=== PATIENT | male | born 1940 | race Two or more races ===

== ENCOUNTER 2018-03-04 19:53 | Emergency (ER) | payer MEDICARE, MEDICAID ==
[~2018-03-04] VITALS: Ht 175.3 cm; Wt 74.8 kg
[2018-03-04 20:00] VITALS: BP 128/63
[2018-03-04] MEDS ORDERED: DONEPEZIL HCL5 MG ORAL (20:08)
[2018-03-04] MEDS ORDERED: ATENOLOL25 MG ORAL (20:08)
[2018-03-04] MEDS ORDERED: LANTUS SOL100 UNIT/1 SUBQ (20:08)
[2018-03-04] MEDS ORDERED: GLIPIZIDE10 MG PO (20:08)
[2018-03-04] MEDS ORDERED: LISINOPRIL10 MG ORAL (20:08)
[2018-03-04] MEDS ORDERED: AMLODIPINE BESYL5 MG ORAL (20:08)
[2018-03-04] MEDS ORDERED: GABAPENTIN300 MG ORAL (20:08)
[2018-03-04] MEDS ORDERED: ATORVASTATIN CA80 MG ORAL (20:08)
[2018-03-04] MEDS ORDERED: TAMSULOSIN HCL0.4 MG ORAL (20:13)
[2018-03-04] MEDS ORDERED: ACETAMINOPHEN325 M1 ORAL (20:13)
[2018-03-04] MEDS ORDERED: ZINC SULFATE220 M1 ORAL (20:13)
[2018-03-04] MEDS ORDERED: VITAMIN C500 M1 ORAL (20:13)
[2018-03-04] MEDS ORDERED: PRO-STAT LIQUID30 ML ORAL (20:13)
[2018-03-04] MEDS ORDERED: VITAMIN B-12100 MCG ORAL (20:13)
[2018-03-04] MEDS ORDERED: NS 1000ml 2,200 ML IVLG ONE (20:15)
[2018-03-04 20:24] LABS: HEMATOCRIT 39.3 % (42.0-52.0); HEMOGLOBIN 13.3 G/DL (14.2-18.0); MEAN CORPUSCULAR VOLUME 92 FL (80-99); PLATELET COUNT 178 K/UL (150-450); RED BLOOD COUNT 4.27 M/UL (4.70-6.10); RED CELL DISTRIBUTION WIDTH 11.8 % (11.6-14.8); WHITE BLOOD COUNT 11.2 K/UL (4.8-10.8)
[2018-03-04 20:36] LABS: ANION GAP 13 mmol/L (5-15); BLOOD UREA NITROGEN 31 mg/dL (7-18); CALCIUM 8.3 MG/DL (8.5-10.1); CARBON DIOXIDE 23 MMOL/L (21-32); CHLORIDE 101 MMOL/L (98-107); CREATININE 1.3 MG/DL (0.55-1.30); POTASSIUM 3.9 MMOL/L (3.5-5.1); SODIUM 137 MMOL/L (136-145)
[2018-03-04 20:39] LABS: INR 1.1 (0.9-1.1)
[2018-03-04 20:47] LABS: ALANINE AMINOTRANSFERASE 25 U/L (12-78); ALBUMIN 2.3 G/DL (3.4-5.0); ALBUMIN/GLOBULIN RATIO 0.5 (1.0-2.7); ALKALINE PHOSPHATASE 146 U/L (46-116); ASPARTATE AMINO TRANSFERASE 32 U/L (15-37); BILIRUBIN,TOTAL 0.4 MG/DL (0.2-1.0); CREATINE KINASE 196 U/L (26-308)
--- NOTE | 2018-03-04 20:51 | Diagnostic Imaging Report ---
EXAM: XR Chest, 1 View CLINICAL HISTORY: Loss of consciousness TECHNIQUE: Frontal view of the chest. COMPARISON: No relevant prior studies available. FINDINGS: Lungs: Bandlike density in the left lung base is compatible with atelectasis or scar. Lungs are otherwise clear. Pleural space: Unremarkable. No pneumothorax. Heart: Unremarkable. No cardiomegaly. Mediastinum: Unremarkable. Bones/joints: No acute osseous abnormality. IMPRESSION: No acute cardiopulmonary process.
[2018-03-04 21:00] VITALS: BP 122/66
[2018-03-04 21:00] LABS: APPEARANCE,URINE SLIGHTLY CLOUDY; BILIRUBIN, URINE NEGATIVE (NEGATIVE); COLOR,URINE AMBER; GLUCOSE, URINE (UA) 4+ (NEGATIVE); KETONES,URINE NEGATIVE (NEGATIVE); LEUKOCYTE ESTERASE ,URINE NEGATIVE (NEGATIVE); NITRITE,URINE NEGATIVE (NEGATIVE); PH,URINE 5 (4.5-8.0); PROTEIN,URINE 3+ (NEGATIVE); UROBILINOGEN,URINE 1 MG/DL (0.0-1.0)
--- NOTE | 2018-03-04 21:00 | Emergency Room Report ---
History of Present Illness General Chief Complaint: Fever Source: Patient, EMS (Sam Muro M.D.) Present Illness HPI Patient presents with fever and altered mentation from snf facility. He was recently discharged from [facility] for treatment of a non- healing ulcer of his left foot. Tonight his temperature was 102 and he was given Tylenol. According to his granddaughter he was unresponsive. Ulcer grew Proteus. His history of diabetes, hypertension, hyperlipidemia, dementia and benign prostatic hypertrophy. The patient denies cough, nausea, vomiting, diarrhea or dysuria. He does complain of pain in his left leg. (Sam Muro M.D.) Allergies: Coded Allergies: No Known Allergies (Unverified , 03/04/18) Patient History Limited by: medical condition Past Medical History: see triage record, old chart reviewed Past Surgical History: other Social History: Denies: smoking - prior and rare, alcohol use, drug use Social History Narrative full treatment for [facility] - Born [place] - retired [employer] Reviewed Nursing Documentation: PMH: Agreed; PSxH: Agreed (Sam Muro M.D.) Nursing Documentation-PMH Hx Hypertension: Yes Hx Diabetes: Yes History Of Psychiatric Problem: Yes - DEMENTIA Hx Cerebrovascular Accident: Yes (Sam Muro M.D.) Review of Systems All Other Systems: limited (Sam Muro M.D.) Physical Exam Vital Signs Date Time Temp Pulse Resp B/P (MAP) Pulse Ox O2 Delivery O2 Flow Rate FiO2 03/04/18 19:57 100.0 107 22 114/58 100 Room Air 100.0 Sp02 EP Interpretation: reviewed, normal General Appearance: no apparent distress, other - GCS 14, Chronically Ill Head: normocephalic Eyes: bilateral eye normal inspection, bilateral eye PERRL, bilateral eye EOMI ENT: moist mucus membranes Neck: supple Respiratory: lungs clear, normal breath sounds Cardiovascular #1: regular rate, rhythm Cardiovascular #2: 2+ radial (R) Gastrointestinal: normal inspection, normal bowel sounds, non tender, no mass, non-distended Musculoskeletal: back normal, normal range of motion, swelling - and dressing/ splint L ankle Neurologic: alert, motor strength/tone normal, sensory intact, speech normal, motor weakness - diffuse, oriented - X2 Psychiatric: mood/affect normal Skin: pallor, other - vesicular rash L thigh/leg L4 dermatome. Dressing with suction drainage L heel (Sam Muro M.D.) Medical Decision Making Diagnostic Impression: Primary Impression: Sepsis Qualified Codes: A41.9 - Sepsis, unspecified organism Additional Impressions: Shingles Qualified Codes: B02.8 - Zoster with other complications Non-healing ulcer of left foot Qualified Codes: L97.529 - Non-pressure chronic ulcer of other part of left foot with unspecified severity ER Course Patient presents with fever and altered mental status. Differential includes sepsis, pneumonia, UTI, shingles, exacerbation of left heel infection amongst others. Evaluation will be with blood cultures, lactate EKG chest x-ray other labs. The patient will be treated with fluid resuscitation and depending on the source - antibiotic will be considered. Low threshold for treating for the possible Proteus of the left heel. Patient improved after Tylenol was given at the snf facility and more responsive. EKG no injury. Chest x-ray left atelectasis. Minimally elevated white count. Lactate is elevated. Glucose is elevated. The urine is elevated with normal creatinine. The patient is given a dose of acyclovir and also started on triple antibiotics. Doubt systemic zoster infection. More likely related to heel. The patient is improved however needs to be admitted for evaluation of the source of infection. Laboratory Tests Test 03/04/18 20:05 03/04/18 20:53 White Blood Count 11.2 K/UL (4.8-10.8) H Red Blood Count 4.27 M/UL (4.70-6.10) L Hemoglobin 13.3 G/DL (14.2-18.0) L Hematocrit 39.3 % (42.0-52.0) L Mean Corpuscular Volume 92 FL (80-99) Mean Corpuscular Hemoglobin 31.1 PG (27.0-31.0) H Mean Corpuscular Hemoglobin Concent 33.8 G/DL (32.0-36.0) Red Cell Distribution Width 11.8 % (11.6-14.8) Platelet Count 178 K/UL (150-450) Mean Platelet Volume 5.6 FL (6.5-10.1) L Neutrophils (%) (Auto) % (45.0-75.0) Lymphocytes (%) (Auto) % (20.0-45.0) Monocytes (%) (Auto) % (1.0-10.0) Eosinophils (%) (Auto) % (0.0-3.0) Basophils (%) (Auto) % (0.0-2.0) Differential Total Cells Counted 100 Neutrophils % (Manual) 88 % (45-75) H Lymphocytes % (Manual) 8 % (20-45) L Monocytes % (Manual) 4 % (1-10) Eosinophils % (Manual) 0 % (0-3) Basophils % (Manual) 0 % (0-2) Band Neutrophils 0 % (0-8) Platelet Estimate Adequate Platelet Morphology Normal Red Blood Cell Morphology Normal Prothrombin Time 11.1 SEC (9.30-11.50) Prothrombin Time INR 1.1 (0.9-1.1) PTT 27 SEC (23-33) Sodium Level 137 MMOL/L (136-145) Potassium Level 3.9 MMOL/L (3.5-5.1) Chloride Level 101 MMOL/L (98-107) Carbon Dioxide Level 23 MMOL/L (21-32) Anion Gap 13 mmol/L (5-15) Blood Urea Nitrogen 31 mg/dL (7-18) H Creatinine 1.3 MG/DL (0.55-1.30) Estimate Glomerular Filtration Rate mL/min (>60) Glucose Level 379 MG/DL (74-106) H Lactic Acid Level 4.00 mmol/L (0.4-2.0) H Calcium Level 8.3 MG/DL (8.5-10.1) L Total Bilirubin 0.4 MG/DL (0.2-1.0) Aspartate Amino Transferase (AST) 32 U/L (15-37) Alanine Aminotransferase (ALT) 25 U/L (12-78) Alkaline Phosphatase 146 U/L (46-116) H Total Creatine Kinase 196 U/L (26-308) Troponin I 0.037 ng/mL (0.000-0.056) Pro-B-Type Natriuretic Peptide 1901 pg/mL (0-125) H Total Protein 7.3 G/DL (6.4-8.2) Albumin 2.3 G/DL (3.4-5.0) L Globulin 5.0 g/dL Albumin/Globulin Ratio 0.5 (1.0-2.7) L Lipase 102 U/L (73-393) Urine Color Loli Urine Appearance Slightly cloudy Urine pH 5 (4.5-8.0) Urine Specific [place] 1.015 (1.005-1.035) Urine Protein 3+ (NEGATIVE) H Urine Glucose (UA) 4+ (NEGATIVE) H Urine Ketones Negative (NEGATIVE) Urine Blood 1+ (NEGATIVE) H Urine Nitrite Negative (NEGATIVE) Urine Bilirubin Negative (NEGATIVE) Urine Ictotest Negative (NEGATIVE) Urine Urobilinogen 1 MG/DL (0.0-1.0) H Urine Leukocyte Esterase Negative (NEGATIVE) Urine RBC 5-10 /HPF (0 - 0) H Urine WBC 0-2 /HPF (0 - 0) Urine Squamous Epithelial Cells Occasional /LPF Urine Amorphous Sediment Moderate /LPF (NONE) H Urine Bacteria Few /HPF (NONE) Urine Mucus Moderate /LPF (NONE/OCC) H (Sam Muro M.D.) ER Course Patient signout to me pending transfer. Patient otherwise stable for transfer to [facility]. I spoke with Dr. Palacios who accepted pt for transfer. (EMILY LEVINE M.D.) EKG Diagnostic Results Rate: normal Rhythm: NSR ST Segments: no acute changes (Sam Muro M.D.) Rhythm Strip Diag. Results EP Interpretation: yes Rhythm: NSR, no PVC's, no ectopy (Sam Muro M.D.) Chest X-Ray Diagnostic Results Chest X-Ray Diagnostic Results : Chest X-Ray Ordered: Yes # of Views/Limited/Complete: 1 View Indication: Other EP Interpretation: Yes Interpretation: no effusion, no pneumothorax, other - atelectasis L Impression: Other Electronically Signed by: Electronically signed by Sam Muro MD (Sam Muro M.D.) Status: improved (Sam Muro M.D.) Disposition: XFER SHT-TRM HOSP Condition: Serious - stable for transfer Referrals: [facility],REFERRING (PCP) Sam Muro M.D. Mar 04, 2018 21:00 EMILY LEVINE M.D. Mar 04, 2018 22:23
[2018-03-04] MEDS ORDERED: Piperacillin/Tazobactam 3.375 GM in NS 110 ML IVPB ONE (21:30)
[2018-03-04] MEDS ORDERED: Vancomycin 1 GM in D5W 275 ML IVPB SCH (21:30)
[2018-03-04 22:00] VITALS: BP 120/67
[2018-03-04 23:29] VITALS: BP 142/68
[2018-03-04 23:54] VITALS: BP 135/68
[2018-03-05 00:18] VITALS: BP 135/68
--- NOTE | 2018-03-06 13:54 | Cardiology Report ---
APPROVED REPORT EKG Measurement Heart [id number] Normal sinus rhythm Nonspecific T wave abnormality Abnormal ECG
== END 2018-03-05 00:18 | disposition short-term general hospital (02) ==
LOC: EDBD 19:53 → EMR 20:17
DX: A41.9 Sepsis, unspecified organism (principal); B02.9 Zoster without complications; E11.621 Type 2 diabetes mellitus with foot ulcer; L97.529 Non-pressure chronic ulcer of other part of left foot with unspecified severity; I10 Essential (primary) hypertension; E78.5 Hyperlipidemia, unspecified; F03.90 Unspecified dementia, unspecified severity, without behavioral disturbance, psychotic disturbance, mood disturbance, and anxiety; Z86.73 Personal history of transient ischemic attack (TIA), and cerebral infarction without residual deficits
CPT/HCPCS: 36415; 71045; 80053; 81003; 82550; 83605; 83690; 83880; 84484; 85007; 85025; 85610; 85730; 87040; 87181; 93005; 96361; 96365; 96366; 96367; 96368; 99285; J1956; J2543; J3370